=== PATIENT | male | born 1970 | race Caucasian/White ===

== ENCOUNTER → 2018-12-10 09:44 | Outpatient (CLI) | payer OTHER, SELFPAY ==
[2018-12-10 12:57] LABS: Absolute Lymphocyte Count 1.98 X10^3/ul (0.83-4.51); Basophil# 0.03 X10^3/uL; Basophil% 0.4 % (0-1); Eosinophil# 0.19 X10^3/uL; Eosinophils% 2.8 % (0-5); Hematocrit 54.7 % (40-54); Hemoglobin 18.3 g/dl (13.0-16.5); Immature Platelet Fraction 3.9 % (1.0-7.9); Lymphocyte # 1.98 X10^3/ul (4.0); Mean Corp Hgb Conc 33.5 g/gl (32-36); Mean Corpuscular Volume 92.6 fL (80-94); Mean Platelet Vol. 11.2 fl (6.2-12.0); Monocyte# 0.59 X10^3/uL; Monocyte% 8.7 % (0-10); Neutrophil # 3.98 X10^3/uL (2.7-7.7); Neutrophil % 58.4 % (47-70); Platelet Count 239 K/mm3 (150-450); RBC Distribution Width CV 13.4 % (11.6-14.6); RBC Distribution Width SD 45.6 fl (35.1-43.9); RET-HE 33.9 pg (30-35); Red Blood Count 5.91 M/mm3 (4.6-6.2); Reticulocyte Count 1.51 % (0.5-1.5); White Blood Count 6.8 K/mm3 (4.4-11.0)
[2018-12-10 13:05] LABS: POSITIVE COUNT NO; POSITIVE DIFFERENTIAL NO; POSITIVE MORPHOLOGY NO
[2018-12-10 13:14] LABS: Ferritin 56 ng/mL (26-388); Iron 209 ug/dL (65-175); Iron Binding Capacity,Total 411 ug/dL (250-450); PERCENT IRON SATURATION 50.9 % (15.0-55.0); PSA,Total - Annual Screen 1.92 ng/mL (0.00-4.00)
[2018-12-11 16:50] LABS: Transferrin 306 mg/dL (200-370)
== END ==
PROVIDERS: Family Provider Family Medicine; PCP Family Medicine; Referring Provider Family Medicine; Visit Provider Family Medicine
DX: R78.1 Finding of opiate drug in blood (principal); R79.89 Other specified abnormal findings of blood chemistry
CPT/HCPCS: 36415; 82728; 83540; 83550; 84153; 84466; 85025; 85045; G0103

== ENCOUNTER → 2019-03-02 | Outpatient (CLI) | payer OTHER, SELFPAY ==
[2019-03-02 10:13] LABS: Anion Gap 8 (5-15); BUN 15 mg/dL (7-18); BUN/Creat Ratio 15.2 RATIO (10-20); Calcium,Total 9.3 mg/dL (8.5-10.1); Chloride 100 mmol/L (98-107); Creatinine, Serum 0.99 mg/dL (0.70-1.30); EST Glomerular Filtration Rate 86 mL/min (>60); Est Glom Filt Rate - Afr Amer 104 mL/min (>60); Glucose 90 mg/dL (74-106); Sodium Level 139 mmol/L (136-145)
== END | disposition home or self-care (01) ==
LOC: MTLAB 07:16
PROVIDERS: Family Provider Family Medicine; PCP Family Medicine; Referring Provider Nurse Practitioner Adult Health; Visit Provider Nurse Practitioner Adult Health
DX: I10 Essential (primary) hypertension (principal)
CPT/HCPCS: 36415; 80048

== ENCOUNTER → 2020-01-16 10:39 | Outpatient (CLI) | payer OTHER, SELFPAY ==
[2020-01-16 12:09] LABS: Absolute Lymphocyte Count 2.19 X10^3/uL (0.83-4.51); Absolute Neutrophil Count 6.4 X10^3/uL (2.0-7.7); Basophil# 0.06 X10^3/uL; Basophil% 0.6 % (0-1); Eosinophil# 0.07 X10^3/uL; Eosinophils% 0.7 % (0-5); Hemoglobin 17.1 g/dL (13.0-16.5); Lymphocyte # 2.19 X10^3/ul (4.0); Lymphocyte % 22.3 % (19-41); Mean Corp Hgb Conc 33.5 g/dL (32-36); Mean Corpuscular Volume 89.5 fL (80-94); Mean Platelet Vol. 9.9 fl (6.2-12.0); Monocyte# 1.05 X10^3/uL; Monocyte% 10.7 % (0-10); NRBC Flagged by Analyzer 0 % (0-5); Neutrophil # 6.37 X10^3/uL (2.7-7.7); Neutrophil % 65.1 % (47-70); Platelet Count 360 K/mm3 (150-450); RBC Distribution Width SD 45.9 fl (35.1-43.9); White Blood Count 9.8 K/mm3 (4.4-11.0)
[2020-01-16 12:26] LABS: ALB/GLOB Ratio 0.9 RATIO (0.9-2.4); AST(SGOT) 30 U/L (15-37); Alanine Aminotransfer ALT/SGPT 47 U/L (16-61); Albumin, Serum 3.2 g/dL (3.2-5.0); Alkaline Phosphatase 71 U/L (45-117); Anion Gap 2 (5-15); BUN 9 mg/dL (7-18); BUN/Creat Ratio 9.6 RATIO (10-20); Calcium,Total 8.5 mg/dL (8.5-10.1); Chloride 107 mmol/L (98-107); Creatinine, Serum 0.94 mg/dL (0.70-1.30); EST Glomerular Filtration Rate 91 mL/min (>60); Est Glom Filt Rate - Afr Amer 110 mL/min (>60); Globulin 3.5 g/dL (2.2-4.2); Glucose 91 mg/dL (74-106); Potassium 3.9 mmol/L (3.5-5.1); Protein, Total 6.7 g/dL (6.4-8.2); Sodium Level 135 mmol/L (136-145)
== END ==
PROVIDERS: PCP Family Medicine; Referring Provider Family Medicine; Visit Provider Family Medicine
DX: R19.7 Diarrhea, unspecified (principal)
CPT/HCPCS: 36415; 80053; 83630; 85025; 87177; 87209; 87493

== ENCOUNTER → 2020-10-25 08:40 | Outpatient (CLI) | payer OTHER, SELFPAY ==
[2020-10-25 10:27] LABS: Hematocrit 52.8 % (40-54); Hemoglobin 17.1 g/dL (13.0-16.5); Mean Corp Hgb Conc 32.4 g/dL (32-36); Mean Corpuscular Hgb 29.9 pg (27.0-32.0); Mean Corpuscular Volume 92.3 fL (80-94); Mean Platelet Vol. 10.7 fl (6.2-12.0); Platelet Count 241 K/mm3 (150-450); RBC Distribution Width CV 12.2 % (11.6-14.6); RBC Distribution Width SD 41.9 fl (35.1-43.9); Red Blood Count 5.72 M/mm3 (4.6-6.2); White Blood Count 6.1 K/mm3 (4.4-11.0)
== END ==
PROVIDERS: PCP Family Medicine; Referring Provider Nurse Practitioner Family; Visit Provider Nurse Practitioner Family
DX: R53.82 Chronic fatigue, unspecified (principal); M62.81 Muscle weakness (generalized)
CPT/HCPCS: 36415; 85027

== ENCOUNTER → 2021-05-17 08:21 | Outpatient (CLI) | payer OTHER, SELFPAY ==
[2021-05-17 10:21] LABS: Hematocrit 53.3 % (40-54); Hemoglobin 17.9 g/dL (13.0-16.5); Mean Corp Hgb Conc 33.6 g/dL (32-36); Mean Corpuscular Volume 92.4 fL (80-94); Mean Platelet Vol. 10.5 fl (6.2-12.0); Platelet Count 219 K/mm3 (150-450); RBC Distribution Width CV 12.8 % (11.6-14.6); RBC Distribution Width SD 43.7 fl (35.1-43.9); Red Blood Count 5.77 M/mm3 (4.6-6.2); White Blood Count 6.9 K/mm3 (4.4-11.0)
[2021-05-17 10:41] LABS: Progesterone Level 0.54 ng/mL (See Comment); T3 Total - Triiodothyronine 1.05 ng/mL (0.6-1.81); Vitamin B12 587 pg/mL (211-911); Vitamin D,25 Hydroxy 78.6 ng/mL
[2021-05-17 10:43] LABS: Hemoglobin A1c 5.1 % (3.8-5.6)
[2021-05-17 11:07] LABS: Homocysteine 7.3 umol/L (3.2-10.7)
[2021-05-17 13:42] LABS: ALB/GLOB Ratio 1.3 RATIO (0.9-2.4); AST(SGOT) 21 U/L (15-37); Alanine Aminotransfer ALT/SGPT 29 U/L (16-61); Albumin, Serum 3.9 g/dL (3.2-5.0); Alkaline Phosphatase 64 U/L (45-117); Anion Gap 4 (5-15); BUN 14 mg/dL (7-18); BUN/Creat Ratio 15.7 RATIO (10-20); CRP, High Sensitivity Cardiac 0.63 mg/L; Calcium,Total 9.1 mg/dL (8.5-10.1); Chloride 100 mmol/L (98-107); Cholesterol 174 mg/dL (200); Creatinine, Serum 0.89 mg/dL (0.70-1.30); EST Glomerular Filtration Rate 95 mL/min (>60); Est Glom Filt Rate - Afr Amer 116 mL/min (>60); Estradiol 52.3 pg/mL; Follicle Stimulating Hormone < 0.2 mIU/mL; Globulin 3.1 g/dL (2.2-4.2); Glucose 99 mg/dL (74-106); High Density Lipoprotein 55 mg/dL; Iron 232 ug/dL (65-175); Luteinizing Hormone < 0.2 mIU/mL; Magnesium 1.9 mg/dL (1.6-2.6); PSA,Total - Annual Screen 2.02 ng/mL (0.00-4.00); Potassium 4.7 mmol/L (3.5-5.1); Prolactin 21.7 ng/mL; Sodium Level 135 mmol/L (136-145); T4 Free Direct 0.82 ng/dL (0.76-1.46); T4 Total, Thyroxin 5.5 ug/dL (4.5-12.1); Thyroid Stim Hormone (TSH) 2.43 uIU/mL (0.358-3.74); Triglycerides 128 mg/dL; Very Low Density Lipoprotein 26 mg/dL (5-40)
[2021-05-25 12:08] LABS: Insulin Like Growth Factor 212 ng/mL (74-255); Testosterone, Free 51.36 ng/dL (5.00-21.00)
[2021-05-25 12:51] LABS: Sex Hormone-binding Globulin 17.6 nmol/L (19.3-76.4); Testosterone, % Free 5.05 % (1.50-4.20); Testosterone, Total 1017 ng/dL (264-916)
== END ==
PROVIDERS: PCP Family Medicine; Referring Provider Nurse Practitioner Family; Visit Provider Nurse Practitioner Family
DX: R53.82 Chronic fatigue, unspecified (principal); R68.82 Decreased libido; M62.81 Muscle weakness (generalized)
CPT/HCPCS: 36415; 80053; 80061; 82306; 82533; 82607; 82627; 82670; 82746; 83001; 83002; 83036; 83090; 83540; 83735; 84144; 84146; 84153; 84270; 84305; 84402; 84403; 84436; 84439; 84443; 84480; 85027; 86141; 82626; G0103

== ENCOUNTER 2021-12-20 08:19 | Outpatient (CLI) | payer OTHER, SELFPAY ==
[2021-12-20 10:22] LABS: Hemoglobin 18.2 g/dL (13.0-16.5); Mean Corp Hgb Conc 34.3 g/dL (32-36); Mean Corpuscular Hgb 30.9 pg (27.0-32.0); Mean Platelet Vol. 10.9 fl (6.2-12.0); Platelet Count 213 K/mm3 (150-450); RBC Distribution Width CV 12.3 % (11.6-14.6); RBC Distribution Width SD 40.9 fl (35.1-43.9); Red Blood Count 5.89 M/mm3 (4.6-6.2); White Blood Count 6.6 K/mm3 (4.4-11.0)
[2021-12-20 10:47] LABS: Homocysteine 5.3 umol/L (3.2-10.7)
[2021-12-20 11:14] LABS: Hemoglobin A1c 5.4 % (3.8-5.6)
[2021-12-20 13:01] LABS: Vitamin B12 715 pg/mL (211-911); Vitamin D,25 Hydroxy 102.5 ng/mL
[2021-12-20 16:25] LABS: ALB/GLOB Ratio 1.3 RATIO (0.9-2.4); AST(SGOT) 21 U/L (15-37); Alanine Aminotransfer ALT/SGPT 32 U/L (16-61); Albumin, Serum 4.1 g/dL (3.2-5.0); Alkaline Phosphatase 60 U/L (45-117); Anion Gap 6 (5-15); BUN 21 mg/dL (7-18); CRP, High Sensitivity Cardiac 1.55 mg/L; Calcium,Total 9.2 mg/dL (8.5-10.1); Chloride 100 mmol/L (98-107); Cholesterol 185 mg/dL (200); Creatinine, Serum 1.05 mg/dL (0.70-1.30); EST Glomerular Filtration Rate 79 mL/min (>60); Est Glom Filt Rate - Afr Amer 95 mL/min (>60); Estradiol 56.9 pg/mL; Follicle Stimulating Hormone < 0.2 mIU/mL; Globulin 3.2 g/dL (2.2-4.2); Glucose 116 mg/dL (74-106); High Density Lipoprotein 47 mg/dL; Iron 177 ug/dL (65-175); Luteinizing Hormone < 0.2 mIU/mL; Magnesium 1.9 mg/dL (1.6-2.6); PSA,Total - Annual Screen 2.13 ng/mL (0.00-4.00); Potassium 4.9 mmol/L (3.5-5.1); Prolactin 11.6 ng/mL; Protein, Total 7.3 g/dL (6.4-8.2); Sodium Level 135 mmol/L (136-145); T4 Free Direct 0.93 ng/dL (0.76-1.46); T4 Total, Thyroxin 7.1 ug/dL (4.5-12.1); Thyroid Stim Hormone (TSH) 2.74 uIU/mL (0.358-3.74); Triglycerides 111 mg/dL; Very Low Density Lipoprotein 22 mg/dL (5-40)
[2021-12-23 12:49] LABS: Pathologist Review Reviewed
[2021-12-25 10:10] LABS: Insulin Like Growth Factor 214 ng/mL (74-255); Testosterone, Free 26.92 ng/dL (5.00-21.00)
[2021-12-25 12:32] LABS: Sex Hormone-binding Globulin 13.9 nmol/L (19.3-76.4); Testosterone, Total 626 ng/dL (264-916)
== END 2021-12-20 23:59 | disposition home or self-care (01) ==
LOC: MTLAB 08:20
PROVIDERS: PCP Family Medicine; Referring Provider Nurse Practitioner Family; Visit Provider Nurse Practitioner Family
DX: R53.82 Chronic fatigue, unspecified (principal); M62.81 Muscle weakness (generalized); R68.82 Decreased libido
CPT/HCPCS: 36415; 80053; 80061; 82306; 82533; 82607; 82627; 82670; 82746; 83001; 83002; 83036; 83090; 83540; 83735; 84144; 84146; 84153; 84270; 84305; 84402; 84403; 84436; 84439; 84443; 84480; 85027; 86141; 82626; G0103